=== PATIENT | female | born 1950 | race Caucasian/White ===

== ENCOUNTER 2017-01-13 07:33 | Emergency (ER) | payer MEDICARE ==
[2017-01-13] MEDS ORDERED: ONDANSETRON 4 MG/2ML 2 ML VIAL ONE (08:21)
[2017-01-13] MEDS ORDERED: MAALOX/LIDO2%VISC/SIMETHICONE 40 ML BOT ONE (08:21)
[2017-01-13] MEDS ORDERED: PANTOPRAZOLE SODIUM 40 MG VIAL IV ONE (08:21)
[2017-01-13] MEDS ORDERED: LACTATED RINGERS 1,000 ML ONE (08:21)
[2017-01-13 08:39] LABS: ABSOLUTE NEUTROPHIL COUNT 2.6 K/mm3 (1.8-7.7); BASO % 0.3 % (0.2-1.0); EOS # 0.1 (0.0-0.5); EOS % 2.9 % (0.9-2.9); HEMATOCRIT 39.9 % (37.0-47.0); HEMOGLOBIN 13.3 gm/l (12.0-16.0); IMM NEUT% 0.3 % (0-1); LYMPH # 0.7 (1.0-4.8); LYMPH % 17.3 % (15-45); MEAN CELL VOLUME 85.3 fl (81.0-99.0); MEAN CORPUSCULAR HEMOGLOBIN 28.4 pg (27.0-31.0); MEAN CORPUSCULAR HGB CONC 33.3 g/dl (33.0-37.0); MEAN PLATELET VOLUME 9.1 fl (7.4-10.4); MONO # 0.5 (0.0-0.8); MONO % 11.8 % (4-12); NEUT % 67.4 % (43-75); PLATELET COUNT 174 K/mm3 (130-400); RED CELL DISTRIBUTION WIDTH 13.4 % (11.5-14.5)
[2017-01-13 09:03] LABS: ALB/GLOB RATIO 1.6 (>1.0); CALCIUM 9.3 mg/dL (8.6-10.3)
--- NOTE | 2017-01-13 10:07 | CT ---
HEAD W/O CON COMPARISON: None HISTORY: Nausea and vomiting for one month. TECHNIQUE: Using a [employer] Aquilion [address] scanner, images were obtained through the head. An automated dose reduction technique was used to minimize patient radiation dose. DOSE INFORMATION: CTDIvol (mGy): 51.70 DLP(mGycm): 913.10 FINDINGS: Mass: None Intracranial Hemorrhage: None Acute Infarction: None Cerebral hemispheres: Mild volume loss and moderate low-attenuation in the white matter. Basal ganglia: Normal Thalami: Normal Brainstem: Normal Cerebellum: Normal Ventricles: Normal Basilar cisterns: Normal Corpus callosum: Normal Pituitary fossa: Normal Middle ears and mastoid air cells: Normal Orbits and sinuses: Normal Skull and scalp: Normal Dural sinuses and vessels: Normal IMPRESSION: 1. No acute finding. No intracranial hemorrhage or mass effect. 2. Mild cerebral atrophy and moderate chronic small vessel schema change of the cerebral white matter. The report was sent to the emergency department electronic medical record system, 01/13/2017 at 10:09
== END 2017-01-13 10:52 | disposition home or self-care (01) ==
LOC: ED 07:33
DX: K29.70 Gastritis, unspecified, without bleeding (principal); K21.9 Gastro-esophageal reflux disease without esophagitis; I10 Essential (primary) hypertension; H91.90 Unspecified hearing loss, unspecified ear
CPT/HCPCS: 83690; 85025; 80053; 70450; 96375; 99284; 96374; 96361 ×2; 93005; 99283; A9270; C9113; J2405; J7120

== ENCOUNTER 2017-01-20 06:45 | Day surgery (SDC) | payer MEDICARE ==
[~2017-01-20 06:45] MED LIST: IV START KIT ONE; LACTATED RINGERS 1,000 ML IV SCH; LIDOCAINE 2% (PRES FREE) 5 ML VIAL ONE; PROPOFOL 20 ML IV ONE
[2017-01-20 12:00] LABS: HELICOBACTER PYLORII DETECTION NEGATIVE (NEGATIVE)
--- NOTE | 2017-01-25 16:40 | SURGPATH ---
[facility] [address] [place] [id number] Patient Name: LOU CHUA MR#: [id number] : 1950 Gender: F Specimen #: [id number] Collected: 01/20/2017 Received: 01/21/2017 Reported: 01/25/2017 Submitting Phys: MADELYN HERRERA Copy To Phys: [facility] Clinical History / Pre-Operative Diagnosis: NAUSEA; VOMITING; DYSPHAGIA; HEARTBURN; RULE OUT ESOPHAGITIS Specimen Source / Surgical Procedure Performed: #1-ANTRAL BIOPSY; #2-ESOPHAGEAL BIOPSY AT 34 CM Interpretation: 1. STOMACH, ANTRUM, BIOPSY: - MILD CHRONIC ANTRAL GASTRITIS WITHOUT ACTIVITY - NO HELICOBACTER ORGANISMS SEEN ON IMMUNOSTAIN 2. ESOPHAGUS, BIOPSY: - NO DIAGNOSTIC ABNORMALITIES Electronically Signed Out Colette Garcia M.D. Gross Description: #1 The specimen is received in a formalin filled container labeled with the patient's name and "antral biopsy". Two fay biopsies are each 0.4 cm. Totally embedded in cassette #1. #2 The specimen is received in a formalin filled container labeled with the patient's name and "esophageal biopsy". Two kat biopsies are 0.2 and 0.4 cm. Totally embedded in cassette #2. Guzman Luke Microscopic Description: Part 1: Antral mucosa shows mild chronic inflammation without activity. No Helicobacter organisms are seen on immunostain. The controls stain appropriately. No malignancy or dysplasia is seen. Part 2: Two fragments of squamous epithelium show no increased intraepithelial eosinophils, active inflammation, basilar hyperplasia , or papillary elongation. No columnar mucosa is seen. (Analyte-specific reagents (ASR) are used in many laboratory tests necessary for standard medical care and generally do not require FDA approval. This test was developed and its performance characteristics determined by [facility]. It has not been cleared or approved by the U.S. Food and Drug Administration. [facility] is certified under the Clinical Laboratory Improvement Amendments of 1988 as qualified to perform high complexity clinical laboratory testing. All controls stain as expected.) 1: 80756, 55765 2: 28180 K29.30
== END 2017-01-20 08:32 | disposition home or self-care (01) ==
LOC: SDC 06:45
PROVIDERS: ATTEND Internal Medicine Gastroenterology
PROC: 0D748ZZ Dilation of Esophagogastric Junction, Via Natural or Artificial Opening Endoscopic (ICD-10-PCS; principal; 2017-01-20)
PROC: 0DB48ZX Excision of Esophagogastric Junction, Via Natural or Artificial Opening Endoscopic, Diagnostic (ICD-10-PCS; 2017-01-20)
PROC: 0DB68ZX Excision of Stomach, Via Natural or Artificial Opening Endoscopic, Diagnostic (ICD-10-PCS; 2017-01-20)
DX: K22.2 Esophageal obstruction (principal); K44.9 Diaphragmatic hernia without obstruction or gangrene; K29.50 Unspecified chronic gastritis without bleeding; K21.0 Gastro-esophageal reflux disease with esophagitis; K29.80 Duodenitis without bleeding; I10 Essential (primary) hypertension; E03.9 Hypothyroidism, unspecified; E78.5 Hyperlipidemia, unspecified; G25.81 Restless legs syndrome; Z79.82 Long term (current) use of aspirin; Z88.8 Allergy status to other drugs, medicaments and biological substances; Z87.891 Personal history of nicotine dependence
CPT/HCPCS: 43249; 43239; 87081; J7120